=== PATIENT | male | born 1990 | race Caucasian/White ===

== ENCOUNTER 2017-06-10 00:08 | Emergency (ER) | payer SELFPAY ==
[~2017-06-10] VITALS: Ht 165.1 cm; Wt 82.0 kg
[2017-06-10] MEDS ORDERED: ONDANSETRON HCL 4MG/2ML VIAL IV STA (01:07)
[2017-06-10] MEDS ORDERED: SODIUM CHLORIDE 0.9% 1,000 ML IV ONE (01:07)
[2017-06-10 01:15] VITALS: BP 121/70
[2017-06-10] MEDS ORDERED: LORAZEPAM 2MG/ML CPJ IV ONE (01:15)
[2017-06-10] MEDS ORDERED: DIVALPROEX SODIUM 500MG DR TABLET PO ONE (01:15)
[2017-06-10] MEDS ORDERED: LEVETIRACETAM 500MG PREMIX 100 ML IV ONE (01:30)
== END 2017-06-10 02:13 | disposition home or self-care (01) ==
LOC: ER 00:08
DX: R56.9 Unspecified convulsions (principal); J45.909 Unspecified asthma, uncomplicated
CPT/HCPCS: 82962; 96365; 96375; 99284; J1953; J2405; J7030; Z7610

== ENCOUNTER 2023-12-25 11:57 | Emergency (ER) | payer MEDICAID ==
[~2023-12-25] VITALS: Ht 175.3 cm; Wt 100.0 kg
[2023-12-25] MEDS: ACETAMINOPHEN 325MG TABLET PO ONE (12:12)
[2023-12-25 12:18] VITALS: O2SAT 96
[2023-12-25 12:23] LABS: BASOPHILS % 0.7 % (0.0-2.0); EOSINOPHILS % 0.1 % (0.0-5.0); HEMATOCRIT. 36.1 % (42.0-52.0); HEMOGLOBIN. 12.1 g/dL (14.0-18.0); MEAN CORPUSCULAR HGB CONC 33.4 g/dL (31.0-37.0); MEAN CORPUSCULAR VOLUME 89.7 fL (80.0-94.0); MEAN PLATELET VOLUME 7.6 fl (7.4-10.4); MONOCYTES % 9.9 % (2.0-8.0); NEUTROPHILS % 60.3 % (40.0-76.0); PLATELET 326 x1000/uL (130-400); RED BLOOD CELL COUNT 4.02 mill/uL (4.7-6.1); RED CELL DISTRIBUTION WIDTH 13.3 % (11.6-14.6); WHITE BLOOD COUNT 7.1 x1000/uL (4.5-11.0)
[2023-12-25 12:28] LABS: CHLORIDE 107 mEq/L (98-107); POTASSIUM 3.5 mEq/L (3.5-5.1); SODIUM 139 mEq/L (136-145)
[2023-12-25 12:29] LABS: CALCIUM 8.9 mg/dL (8.7-10.4); CARBON DIOXIDE 23 mEq/L (21-32)
[2023-12-25 12:34] LABS: CREATININE 0.7 mg/dL (0.6-1.3); GLUCOSE 102 mg/dL (70-105); UREA NITROGEN BLOOD 7 mg/dL (9-23)
[2023-12-25 12:35] LABS: ETHANOL BLOOD 34 mg/dL (<10); TROPONIN I HIGH SENSITIVITY 26 ng/L (3.0-53)
[2023-12-25] MEDS ORDERED: LEVETIRACETAM 500 MG in SODIUM CHLORIDE 0.9% 100 ML IV SCH (12:45)
[2023-12-25 12:51] LABS: CARBAMAZEPINE < 0.4 ug/mL (4-12); PHENYTOIN < 2.0 ug/mL (10-20); PROTHROMBIN TIME 10.9 sec (9.6-11.0); VALPROIC ACID < 3.0 ug/mL (50-100)
[2023-12-25] MEDS: LEVETIRACETAM 500MG PREMIX 100 ML IV SCH (12:58)
[2023-12-25] MEDS: VALPROATE SODIUM 500 MG in SODIUM CHLORIDE 0.9% 100 ML IV SCH (13:30)
[2023-12-25] MEDS: MORPHINE SULFATE 4 MG/ML INJ (FOR IV/IM USE) IV ONE (15:08)
[2023-12-25 15:45] VITALS: BP 132/79; PULSE 95; RESP 22; TEMP 98.1
[2023-12-25] MEDS: LEVETIRACETAM 500MG PREMIX 100 ML IV ONE (16:16)
== END 2023-12-25 15:51 | disposition short-term general hospital (02) ==
LOC: ER 11:57
DX: S02.32XA Fracture of orbital floor, left side, initial encounter for closed fracture (principal); S02.31XA Fracture of orbital floor, right side, initial encounter for closed fracture; R56.9 Unspecified convulsions; J45.909 Unspecified asthma, uncomplicated; Y08.89XA Assault by other specified means, initial encounter; Y93.89 Activity, other specified; Y92.89 Other specified places as the place of occurrence of the external cause; Y99.8 Other external cause status
CPT/HCPCS: 80048; 80320; 80156; 80185; 80165; 85025; 85610; 84484; 36415; 71045; 70450; 70486; 72125; 93005; 96367; 96365; 96366; 96375; 99291; J1953; J3490; J2270; J7050; Z7610; G0480